=== PATIENT | female | born 1985 | race African-American/Black ===

== ENCOUNTER 2016-05-21 11:02 | Emergency (ER) | payer OTHER ==
[2016-05-21 11:09] VITALS: BP 99/65; PULSE 67; TEMP 98.4; BMI 22.7
--- NOTE | 2016-05-21 12:27 | PDOC ---
History of Present Illness - General Chief Complaint: Cold Symptoms Stated Complaint: EMPLOYEE, SICK Time Seen by Provider: 05/21/16 11:38 History Source: Patient - History of Present Illness Initial Comments: 05/21/16 12:22 Chief complaint: Cold symptoms Patient is employee with 4 days of upper respiratory symptoms, runny nose, no fever but feeling weak. Patient was at work and felt that she couldn't work anymore. GENERAL/CONSTITUTIONAL: No fever, +weakness. dizziness HEAD, EYES, EARS, NOSE AND THROAT: No change in vision. No ear pain or discharge. No sore throat. + Stuffy nose and congestion CARDIOVASCULAR: No chest pain RESPIRATORY: No shortness of breath or cough GASTROINTESTINAL: No pain, nausea, vomiting, diarrhea or constipation GENITOURINARY: No dysuria MUSCULOSKELETAL: No neck or back pain SKIN: No rash NEUROLOGIC: No headache, vertigo, loss of consciousness, or loss of sensation. GENERAL: The patient is awake, alert, and fully oriented, in no acute distress. HEAD: Normal with no signs of trauma. EYES: Pupils equal, round and reactive to light, sclera anicteric, conjunctiva clear. ENT: pharynx: no erythema, no exudate, uvula midline NECK: supple CHEST: clear, nontender, rr ABD: soft, nontender EXTREMITIES: Normal range of motion, no edema. NEUROLOGICAL: Normal speech, normal gait. SKIN: Warm, Dry Past History - Past Medical History Allergies/Adverse Reactions: Allergies Allergy/AdvReac Type Severity Reaction Status Date / Time No Known Allergies Allergy Verified 05/21/16 11:10 Home Medications: Ambulatory Orders NK [No Known Home Medication] 05/21/16 Other medical history: PATIENT DENIES MEDICAL HX - Psycho/Social/Smoking Cessation Hx Suicidal Ideation: No Smoking History: Never smoked Hx Alcohol Use: No Drug/Substance Use Hx: No Substance Use Type: None *Physical Exam - Vital Signs Last Vital Signs Temp Pulse Resp BP Pulse Ox 98.4 F 67 18 99/65 100 05/21/16 11:07 05/21/16 11:07 05/21/16 11:07 05/21/16 11:07 05/21/16 11:07 Medical Decision Making - Medical Decision Making 05/21/16 12:25 Healthy 30-year-old with 4 days of upper respiratory symptoms, no fever, who states she's too weak to work today. In discussion patient also mentioned that she's been having ongoing on and off rectal pain for a long time, has discussed with her retouching operator who told her she had hemorrhoids and she gets this pain around the time of her menses. Discussed fully with patient, and she will follow -up with her retouching operator or GI doctor, for further evaluation, possible scoping. No acute issue today. Resting plan for discharge, when they're she wants a flu swab done for completeness although she does not have a fever, patient requested a test. When asked if she thought she was she said no but I want to be sure. Will order a test and then discharge patient after reevaluation *DC/Admit/Observation/Transfer Diagnosis at time of Disposition: Upper respiratory infection Qualifiers: URI type: unspecified URI Qualified Code(s): J06.9 - Acute upper respiratory infection, unspecified - Discharge Dispostion Disposition: HOME Condition at time of disposition: Stable - Patient Instructions Printed Discharge Instructions: DI for Viral Upper Respiratory Infection -- Adult Additional Instructions: Can take Sudafed as directed on the package for nasal congestion or if you want to sleep you can take NyQuil instead Follow-up with your doctor if not feeling better in 2 days Follow-up with your doctor regarding the rectal pain as discussed as you may need to have someone do a visual exam, scope to further evaluate Return to the ER if fever, vomiting or feeling sicker Sure you drinking plenty fluids, 2-3 L of water a day
== END 2016-05-21 12:52 | disposition home or self-care (01) ==
LOC: JERFT 11:02
DX: J06.9 Acute upper respiratory infection, unspecified (principal)
CPT/HCPCS: 84703; 99281-25

== ENCOUNTER 2019-04-01 11:31 | Emergency (ER) | payer OTHER ==
[2019-04-01 11:40] VITALS: BP 108/65; PULSE 80; TEMP 98.2; BMI 25.2
--- NOTE | 2019-04-01 12:29 | PDOC ---
History of Present Illness - General Chief Complaint: Injury Stated Complaint: INJURY TO LT MID DIGIT Time Seen by Provider: 04/01/19 12:21 History Source: Patient - History of Present Illness Initial Comments: 04/01/19 12:56 Chief complaint: Finger injury Patient is a healthy 33-year-old female who states that she injured her left middle finger when she went to close the door and it got caught. Patient has a small wound to the dorsum of the finger, is not sure when her last tetanus was. Her youngest child is 8 years old. Wound is not bleeding. Patient has minimal pain and is able to move the finger. GENERAL/CONSTITUTIONAL: No fever, weakness. dizziness HEAD, EYES, EARS, NOSE AND THROAT: No change in vision. No ear pain or discharge. No sore throat. CARDIOVASCULAR: No chest pain RESPIRATORY: No shortness of breath or cough GASTROINTESTINAL: No pain, nausea, vomiting, diarrhea or constipation GENITOURINARY: No dysuria MUSCULOSKELETAL: No neck or back pain, + left third finger SKIN: No rash NEUROLOGIC: No headache, vertigo, loss of consciousness, or loss of sensation. GENERAL: The patient is awake, alert, and fully oriented, in no acute distress. HEAD: Normal with no signs of trauma. EYES: Pupils equal, round and reactive to light, sclera anicteric, conjunctiva clear. ENT: pharynx: no erythema, no exudate, uvula midline NECK: supple CHEST: clear, nontender, rr ABD: soft, nontender BACK: no tenderness or signs of injury EXTREMITIES: Left third finger with small skin abrasion/avulsion to the dorsum distal phalanx, minimal tenderness, full range of motion, no signs of tendon injury, neurovascular intact. Rest of extremities, normal range of motion, no edema. NEUROLOGICAL: Normal speech, normal gait. SKIN: Warm, Dry Past History - Past Medical History Allergies/Adverse Reactions: Allergies Allergy/AdvReac Type Severity Reaction Status Date / Time No Known Allergies Allergy Verified 04/01/19 11:34 Home Medications: Ambulatory Orders NK [No Known Home Medication] 05/21/16 - Psycho Social/Smoking Cessation Hx Smoking History: Never smoked Have you smoked in the past 12 months: No Hx Alcohol Use: No Drug/Substance Use Hx: No Substance Use Type: None *Physical Exam - Vital Signs Last Vital Signs Temp Pulse Resp BP Pulse Ox 98.2 F 80 16 108/65 100 04/01/19 11:35 04/01/19 11:35 04/01/19 11:35 04/01/19 11:35 04/01/19 11:35 Procedures - Splinting Splint Location: Left: Finger (3rd) Pre-Proc Neuro Vasc Exam: normal Pre-Made Type: metal Post-Proc Neuro Vasc Exam: normal Phillip Bandage: no - Laceration/Wound Repair Left Distal Dorsal Finger 3rd digit Wound Length: to 2.5 cm Wound Explored: clean, no foreign body present Wound's Depth, Shape: superficial Irrigated w/ Saline: Yes Betadine Prep: Yes Wound Repaired With: Dermabond Medical Decision Making - Medical Decision Making 04/01/19 13:04 Patient with superficial skin wound to third middle finger, happened at work, needs tetanus update, will get x-ray to rule out any bony injury or foreign body. X-rays negative Will apply Dermabond Discussed issues, findings, results, applicable medications and treatments and follow-up. All these were understood and all questions were answered Discharge - Discharge Information Problems reviewed: Yes Clinical Impression/Diagnosis: Finger injury Qualifiers: Encounter type: initial encounter Laterality: left Qualified Code(s): S69.92XA - Unspecified injury of left wrist, hand and finger(s), initial encounter Condition: Stable Disposition: HOME - Admission No - Follow up/Referral Referrals: Juan Mendez MD [Primary Care Provider] - - Patient Discharge Instructions Patient Printed Discharge Instructions: DI for Laceration Repair With Dermabond Additional Instructions: Do not get wet. Wear splint Not use any ointment, oil or creams The glue will start cracking off in about 5 days Have reevaluated if any redness, pus or any signs of infection - Post Discharge Activity Work/Back to School Note: Back to Work
[2019-04-01] MEDS ORDERED: BACITRACIN 15 GM TUBE TOPICAL OINTMENT TP ONE (12:30)
[2019-04-01] MEDS ORDERED: IBUPROFEN 600 MG TABLET (FP) PO ONE ×2 (12:31→12:33)
[2019-04-01] MEDS ORDERED: DIPHTH,PERTUSS(ACELL),TET 0.5 ML DISP.SYRIN IM ONE ×2 (12:31→12:34)
== END 2019-04-01 13:14 | disposition home or self-care (01) ==
LOC: JERFT 11:31
PROC: 0HQGXZZ Repair Left Hand Skin, External Approach (ICD-10-PCS; principal; 2019-04-01)
PROC: 2W3KX1Z Immobilization of Left Finger using Splint (ICD-10-PCS; 2019-04-01)
DX: S61.213A Laceration without foreign body of left middle finger without damage to nail, initial encounter (principal); W23.0XXA Caught, crushed, jammed, or pinched between moving objects, initial encounter; Y93.89 Activity, other specified; Y92.238 Other place in hospital as the place of occurrence of the external cause; Y99.0 Civilian activity done for income or pay
CPT/HCPCS: 73140-TC-LT-FY; 90715; 99283-25